=== PATIENT | male | born 1975 | race Caucasian/White ===

== ENCOUNTER 2016-04-28 04:26 | Emergency (ER) | payer OTHER ==
--- NOTE | 2016-04-28 05:08 | ED NURSING NOTES ---
Clinical Report - Nurses [facility] [address] [place] [address] 04/28/2016 4:27 Patient: TYLER HUDDLESTON TRIAGE Triage time 04:35. Acuity: LEVEL 5. Chief Complaint: (Needs meds,sore on left forearm). 04:44. Alert. SEPSIS SCREEN: Sepsis Screen. Negative (no infection suspected/documented). --04:44 Stefan Cordova R.N. 04:34 04/28/16. BP: 139/99. HR: 108. RR: 16. O2 saturation: 100% on room air. Temp: 98.4 F (oral). Pain level now: 10/14. --04:44 Stefan Cordova R.N. Weight: 72.5 kg stated. Height/Length: 68 inches Per Patient. BMI: 24.3. --04:43 Stefan Cordova R.N. Medications Wellbutrin Oral 300mg , 2x a day. --04:38 Stefan Cordova R.N. ZyPREXA Oral 5 mg, at bedtime. --04:38 Stefan Cordova R.N. Remeron Oral (Tablet 30 mg) 2 tablets, at bedtime. --04:39 Stefan Cordova R.N. Neurontin Oral 1200mg , 2x a day as needed. --04:39 Stefan Cordova R.N. ClonazePAM Oral 2 mg, 3x a day as needed. --04:40 Stefan Cordova R.N. Medication/allergy information source: the patient. --04:44 Stefan Cordova R.N. Allergies Keflex.(hives) --04:40 Stefan Cordova R.N. History Arrived by private vehicle. Historian: patient. Accompanied by friend. Primary physician (Melissa). Onset. (2 days ago). ( Patient reports leaving [facility] last tuesday before being discharged so he got no scripts, is asking for medications). Treatment RETAIL MERCHANDISING MANAGER: None. PAST MEDICAL HX: Immunizations: up-to-date. SOCIAL HX: Heavy tobacco smoker- less than 1 pack per day. History of weekly drug use: marijuana. No alcohol use. No infectious disease exposure. ABUSE ASSESSMENT: No report of abuse. FALL RISK ASSESSMENT: Fall risk assessment completed. No fall risk identified. NUTRITIONAL RISK ASSESSMENT: The nutritional risk assessment revealed no deficiencies. FUNCTIONAL ASSESSMENT: Functional assessment: no impairments noted. LEARNING NEEDS ASSESSMENT: The learning needs assessment revealed no barriers. SKIN INTEGRITY ASSESSMENT: Skin integrity risk assessment completed. No skin integrity risk identified. --04:44 Stefan Cordova R.N. PROBLEMS: Anxiety Reaction. Hyperactivity. Schizophrenia. --04:42 Stefan Cordova R.N. ADDITIONAL SURGERIES: no known surgeries. Interventions ID band on patient. To treatment room. --04:44 Stefan Cordova R.N. PHYSICAL ASSESSMENT 04:44. Ambulatory to room. Patient gowned. GENERAL / NEURO / PSYCH: Alert. Oriented X 4. HEENT: No facial asymmetry noted. Mucous membranes are pink. RESPIRATORY: Respirations not labored. SKIN: Skin intact. Skin is warm and dry. Normal skin turgor. --04:45 Stefan Cordova R.N. NURSING PROGRESS NOTES 04:45. Head of bed elevated. Two patient identifiers checked. Call light placed in reach. Bed placed in lowest position. Brakes of bed on. Patient ready for evaluation- chart flagged. --04:45 Stefan Cordova R.N. ( Patient walked without difficulty to the nurses station, to report remembering that he had "back pain, that makes me unable to walk"). --05:08 Luis E Alex, ER Sheet Pile Driver Operator. DISPOSITION / DISCHARGE Departure time: 05:14. Condition at departure: stable. No learning barriers present. Discharge instructions provided and reviewed with the patient. Patient verbalized understanding. Written instructions provided in Korean. The patient was discharged home and accompanied by scale and skip car operator. He left the Emergency Department ambulatory and via private vehicle. Inside Sales Associate driving. FALL RISK ASSESSMENT: Fall risk assessment completed. No fall risk identified. --05:14 Stefan Cordova R.N. Locked/Released at 04/28/2016 5:15 by Stefan Cordova R.N.
--- NOTE | 2016-04-28 05:08 | ED CLINICAL REPORT ---
Clinical Report - Physicians/Mid Levels [facility] [address] [place] [address] 04/28/2016 4:27 Patient: TYLER HUDDLESTON Time Seen: 04:47. Arrived- By private vehicle. Historian- patient. History limited by vague historian. HISTORY OF PRESENT ILLNESS Chief Complaint: PRESCRIPTION REFILL REQUEST. This started about 2 days ago and is still present. It was abrupt in onset. (patient reports that he has been out of his medications for 2 days. He says that he was in [place] previously and was "transferred up" here by the [employer]. He requests refills on his psychiatric meds including Zyprexa, Klonopin, bupropion and "some others I'm not sure of their names."). Recent medical care: The patient was seen recently at another facility in the emergency department. ( He was apparently recently seen at [facility] and says that they discharged him without any meds). REVIEW OF SYSTEMS No chills, fever, sweats, calf pain or chest pain. No cough, difficulty breathing, pedal edema, palpitations or abdominal pain. No constipation, diarrhea, nausea, vomiting or urinary problems. All systems otherwise negative, except as recorded above. PAST HISTORY Problems: Anxiety Reaction. Hyperactivity. Schizophrenia. Additional Surgeries: no known surgeries. Medications: ClonazePAM Oral 2 mg, 3x a day as needed. Neurontin Oral 1200mg , 2x a day as needed. Remeron Oral (Tablet 30 mg) 2 tablets, at bedtime. ZyPREXA Oral 5 mg, at bedtime. Wellbutrin Oral 300mg , 2x a day. Allergies: Keflex.(hives). SOCIAL HISTORY Current every day heavy tobacco smoker (cigarette)- less than 1 pack per day. History of occasional drug use: marijuana. No alcohol use. FAMILY HISTORY Denies family medical history. ADDITIONAL NOTES The nursing notes have been reviewed. PHYSICAL EXAM Vital Signs: 04/28/2016 04:34 BP: 139/99. HR: 108. RR: 16. O2 saturation: 100%. Temp: 98.4 F. Pain level now: 8/10. Have been reviewed. Heart rate: 88 regular per my evaluation. Appearance: Alert. Eyes: Pupils equal, round and reactive to light. ENT: Pharynx normal. Neck: Neck supple. CVS: Normal heart rate and rhythm. Heart sounds normal. Respiratory: No respiratory distress. Breath sounds normal. Abdomen: No visible injury. Soft and nontender. Bowel sounds normal. No organomegaly. No mass. Back: Normal inspection. Skin: Skin warm and dry. Extremities: Extremities exhibit normal ROM. No calf tenderness. No lower extremity edema. PROGRESS AND PROCEDURES Course of Care: Patient is stable. Patient/family counseled. Old medical records ordered. Disposition: Discharged. Condition: stable. CLINICAL IMPRESSION Schizophrenia. INSTRUCTIONS Rest. Warnings: Further evaluation is necessary. GENERAL WARNINGS: Return or contact your physician immediately if your condition worsens or changes unexpectedly, if not improving as expected, or if other problems arise. Understanding of the discharge instructions verbalized by patient. Follow-up with: [facility], , , [address], [facility], [id number] Follow up today. Call for an appointment. (Electronically signed by Julio Cesar Edward MD 04/28/2016 6:26)
--- NOTE | 2016-04-28 05:08 | ED CLINICAL REPORT ---
Clinical Report - Physicians/Mid Levels [facility] [address] [place] [address] 04/28/2016 4:27 Patient: TYLER HUDDLESTON Time Seen: 04:47. Arrived- By private vehicle. Historian- patient. History limited by vague historian. HISTORY OF PRESENT ILLNESS Chief Complaint: PRESCRIPTION REFILL REQUEST. This started about 2 days ago and is still present. It was abrupt in onset. (patient reports that he has been out of his medications for 2 days. He says that he was in [place] previously and was "transferred up" here by the [employer]. He requests refills on his psychiatric meds including Zyprexa, Klonopin, bupropion and "some others I'm not sure of their names."). Recent medical care: The patient was seen recently at another facility in the emergency department. ( He was apparently recently seen at [facility] and says that they discharged him without any meds). REVIEW OF SYSTEMS No chills, fever, sweats, calf pain or chest pain. No cough, difficulty breathing, pedal edema, palpitations or abdominal pain. No constipation, diarrhea, nausea, vomiting or urinary problems. All systems otherwise negative, except as recorded above. PAST HISTORY Problems: Anxiety Reaction. Hyperactivity. Schizophrenia. Additional Surgeries: no known surgeries. Medications: ClonazePAM Oral 2 mg, 3x a day as needed. Neurontin Oral 1200mg , 2x a day as needed. Remeron Oral (Tablet 30 mg) 2 tablets, at bedtime. ZyPREXA Oral 5 mg, at bedtime. Wellbutrin Oral 300mg , 2x a day. Allergies: Keflex.(hives). SOCIAL HISTORY Current every day heavy tobacco smoker (cigarette)- less than 1 pack per day. History of occasional drug use: marijuana. No alcohol use. FAMILY HISTORY Denies family medical history. ADDITIONAL NOTES The nursing notes have been reviewed. PHYSICAL EXAM Vital Signs: 04/28/2016 04:34 BP: 139/99. HR: 108. RR: 16. O2 saturation: 100%. Temp: 98.4 F. Pain level now: 8/10. Have been reviewed. Heart rate: 88 regular per my evaluation. Appearance: Alert. Eyes: Pupils equal, round and reactive to light. ENT: Pharynx normal. Neck: Neck supple. CVS: Normal heart rate and rhythm. Heart sounds normal. Respiratory: No respiratory distress. Breath sounds normal. Abdomen: No visible injury. Soft and nontender. Bowel sounds normal. No organomegaly. No mass. Back: Normal inspection. Skin: Skin warm and dry. Extremities: Extremities exhibit normal ROM. No calf tenderness. No lower extremity edema. PROGRESS AND PROCEDURES Course of Care: Patient is stable. Patient/family counseled. Old medical records ordered. Disposition: Discharged. Condition: stable. CLINICAL IMPRESSION Schizophrenia. INSTRUCTIONS Rest. Warnings: Further evaluation is necessary. GENERAL WARNINGS: Return or contact your physician immediately if your condition worsens or changes unexpectedly, if not improving as expected, or if other problems arise. Understanding of the discharge instructions verbalized by patient. Follow-up with: [facility], , , [address], [facility], [id number] Follow up today. Call for an appointment. (Electronically signed by Julio Cesar Edward MD 04/28/2016 6:26)
--- NOTE | 2016-04-28 05:08 | ED NURSING NOTES ---
Clinical Report - Nurses [facility] [address] [place] [address] 04/28/2016 4:27 Patient: TYLER HUDDLESTON TRIAGE Triage time 04:35. Acuity: LEVEL 5. Chief Complaint: (Needs meds,sore on left forearm). 04:44. Alert. SEPSIS SCREEN: Sepsis Screen. Negative (no infection suspected/documented). --04:44 Stefan Cordova R.N. 04:34 04/28/16. BP: 139/99. HR: 108. RR: 16. O2 saturation: 100% on room air. Temp: 98.4 F (oral). Pain level now: 10/14. --04:44 Stefan Cordova R.N. Weight: 72.5 kg stated. Height/Length: 68 inches Per Patient. BMI: 24.3. --04:43 Stefan Cordova R.N. Medications Wellbutrin Oral 300mg , 2x a day. --04:38 Stefan Cordova R.N. ZyPREXA Oral 5 mg, at bedtime. --04:38 Stefan Cordova R.N. Remeron Oral (Tablet 30 mg) 2 tablets, at bedtime. --04:39 Stefan Cordova R.N. Neurontin Oral 1200mg , 2x a day as needed. --04:39 Stefan Cordova R.N. ClonazePAM Oral 2 mg, 3x a day as needed. --04:40 Stefan Cordova R.N. Medication/allergy information source: the patient. --04:44 Stefan Cordova R.N. Allergies Keflex.(hives) --04:40 Stefan Cordova R.N. History Arrived by private vehicle. Historian: patient. Accompanied by friend. Primary physician (Melissa). Onset. (2 days ago). ( Patient reports leaving [facility] last tuesday before being discharged so he got no scripts, is asking for medications). Treatment MECHANICAL DESIGN TECHNICIAN: None. PAST MEDICAL HX: Immunizations: up-to-date. SOCIAL HX: Heavy tobacco smoker- less than 1 pack per day. History of weekly drug use: marijuana. No alcohol use. No infectious disease exposure. ABUSE ASSESSMENT: No report of abuse. FALL RISK ASSESSMENT: Fall risk assessment completed. No fall risk identified. NUTRITIONAL RISK ASSESSMENT: The nutritional risk assessment revealed no deficiencies. FUNCTIONAL ASSESSMENT: Functional assessment: no impairments noted. LEARNING NEEDS ASSESSMENT: The learning needs assessment revealed no barriers. SKIN INTEGRITY ASSESSMENT: Skin integrity risk assessment completed. No skin integrity risk identified. --04:44 Stefan Cordova R.N. PROBLEMS: Anxiety Reaction. Hyperactivity. Schizophrenia. --04:42 Stefan Cordova R.N. ADDITIONAL SURGERIES: no known surgeries. Interventions ID band on patient. To treatment room. --04:44 Stefan Cordova R.N. PHYSICAL ASSESSMENT 04:44. Ambulatory to room. Patient gowned. GENERAL / NEURO / PSYCH: Alert. Oriented X 4. HEENT: No facial asymmetry noted. Mucous membranes are pink. RESPIRATORY: Respirations not labored. SKIN: Skin intact. Skin is warm and dry. Normal skin turgor. --04:45 Stefan Cordova R.N. NURSING PROGRESS NOTES 04:45. Head of bed elevated. Two patient identifiers checked. Call light placed in reach. Bed placed in lowest position. Brakes of bed on. Patient ready for evaluation- chart flagged. --04:45 Stefan Cordova R.N. ( Patient walked without difficulty to the nurses station, to report remembering that he had "back pain, that makes me unable to walk"). --05:08 Luis E Alex, ER Drier Operator Helper. DISPOSITION / DISCHARGE Departure time: 05:14. Condition at departure: stable. No learning barriers present. Discharge instructions provided and reviewed with the patient. Patient verbalized understanding. Written instructions provided in Kyrgyz. The patient was discharged home and accompanied by precipitation equipment tender. He left the Emergency Department ambulatory and via private vehicle. Flatwork Folder driving. FALL RISK ASSESSMENT: Fall risk assessment completed. No fall risk identified. --05:14 Stefan Cordova R.N. Locked/Released at 04/28/2016 5:15 by Stefan Cordova R.N.
--- NOTE | 2016-04-28 06:26 | ED MED RECONCILIATION SUMMARY ---
Patient: TYLER HUDDLESTON Medication Reconciliation Report [facility] VisitID: [id number] [address] [place] [address] 41y, M Registration Date/Time: 04/28/2016 Weight: 72.5 kg Height/Length: 68 in. BMI: 24.3 ALLERGIES: Keflex The patient's Home Medications are listed below: THE FOLLOWING MEDICATIONS NEED TO BE RECONCILED: ClonazePAM Oral 2 mg, 3x a day Neurontin Oral 1200mg , 2x a day Remeron Oral (30 mg) 2 tablets, at bedtime Wellbutrin Oral 300mg , 2x a day ZyPREXA Oral 5 mg, at bedtime The source(s) of the original Home Medication information: patient The following Medications were given to the patient in the Emergency Department: None. The following Medications were prescribed to the patient: None.
--- NOTE | 2016-04-28 06:26 | ED MED RECONCILIATION SUMMARY ---
Patient: TYLER HUDDLESTON Medication Reconciliation Report [facility] VisitID: [id number] [address] [place] [address] 41y, M Registration Date/Time: 04/28/2016 Weight: 72.5 kg Height/Length: 68 in. BMI: 24.3 ALLERGIES: Keflex The patient's Home Medications are listed below: THE FOLLOWING MEDICATIONS NEED TO BE RECONCILED: ClonazePAM Oral 2 mg, 3x a day Neurontin Oral 1200mg , 2x a day Remeron Oral (30 mg) 2 tablets, at bedtime Wellbutrin Oral 300mg , 2x a day ZyPREXA Oral 5 mg, at bedtime The source(s) of the original Home Medication information: patient The following Medications were given to the patient in the Emergency Department: None. The following Medications were prescribed to the patient: None.
--- NOTE | 2016-04-28 06:26 | ED DISCHARGE INSTRUCTIONS ---
Patient: TYLER HUDDLESTON General Instructions [facility] VisitID: [id number] [address] [place] [address] 41y, M Registration Date/Time: 04/28/2016 Schizophrenia. INSTRUCTIONS Rest. Warnings: Further evaluation is necessary. GENERAL WARNINGS: Return or contact your physician immediately if your condition worsens or changes unexpectedly, if not improving as expected, or if other problems arise. Understanding of the discharge instructions verbalized by patient. Follow-up with: [facility], , , [address], , [place], [id number] Follow up today. Call for an appointment. ADDITIONAL INFORMATION Schizophrenia [General Type] Schizophrenia is a chronic, severe and disabling brain disorder. The cause of schizophrenia is not yet known. It is believed to be a result of genetic and biological factors (brain chemistry and structure). Schizophrenia does run in families and occurs in about 1% of the adult population. Symptoms include: Hallucinations (seeing or hearing things that are not there) Delusions (false beliefs) Disorganized thinking and speech Social withdrawal Severe anxiety Feeling unreal Medicines and therapy can help with many of the symptoms and allow for better daily function and quality of life. These medicines take 2-4 weeks to begin working and 6-8 weeks to take full effect. It is common to feel that you are not ill and that you don't need treatment. It is important to accept the support of friends and family in continuing to take your medicine. Home Care: Be sure to take your medicine as directed even if you think you dont need it. Seek support from friends or family by talking about your feelings and thoughts. Follow Up with your doctor or therapist as advised by our staff. For more information, contact The [employer] [place] [facility] [employer] 920-996-4206 www.monika.org Get Prompt Medical Attention if any of the following occur: Feeling like your symptoms are getting worse Feeling out of control or that you are being controlled by others Feeling like you want to harm yourself or another Unable to care for yourself Worsening hallucinations (hearing voices) Worsening depression or anxiety You have been given the following additional information: Schizophrenia, General Rest. (Electronically signed by Julio Cesar Edward MD 04/28/2016 6:26)
--- NOTE | 2016-04-28 06:26 | ED MAR SUMMARY ---
..... Medication Administration Record [facility] [address] [place] [id number] Patient: TYLER HUDDLESTON Visit ID: [id number] 41y, M Weight: 72.5 kg Height/Length: 68 in BMI: 24.3 ALLERGIES: Keflex
--- NOTE | 2016-04-28 06:26 | ED DISCHARGE INSTRUCTIONS ---
Patient: TYLER HUDDLESTON General Instructions [facility] VisitID: [id number] [address] [place] [address] 41y, M Registration Date/Time: 04/28/2016 Schizophrenia. INSTRUCTIONS Rest. Warnings: Further evaluation is necessary. GENERAL WARNINGS: Return or contact your physician immediately if your condition worsens or changes unexpectedly, if not improving as expected, or if other problems arise. Understanding of the discharge instructions verbalized by patient. Follow-up with: [facility], , , [address], , [place], [id number] Follow up today. Call for an appointment. ADDITIONAL INFORMATION Schizophrenia [General Type] Schizophrenia is a chronic, severe and disabling brain disorder. The cause of schizophrenia is not yet known. It is believed to be a result of genetic and biological factors (brain chemistry and structure). Schizophrenia does run in families and occurs in about 1% of the adult population. Symptoms include: Hallucinations (seeing or hearing things that are not there) Delusions (false beliefs) Disorganized thinking and speech Social withdrawal Severe anxiety Feeling unreal Medicines and therapy can help with many of the symptoms and allow for better daily function and quality of life. These medicines take 2-4 weeks to begin working and 6-8 weeks to take full effect. It is common to feel that you are not ill and that you don't need treatment. It is important to accept the support of friends and family in continuing to take your medicine. Home Care: Be sure to take your medicine as directed even if you think you dont need it. Seek support from friends or family by talking about your feelings and thoughts. Follow Up with your doctor or therapist as advised by our staff. For more information, contact The National [place] [facility] [employer] [phone] www.monika.org Get Prompt Medical Attention if any of the following occur: Feeling like your symptoms are getting worse Feeling out of control or that you are being controlled by others Feeling like you want to harm yourself or another Unable to care for yourself Worsening hallucinations (hearing voices) Worsening depression or anxiety You have been given the following additional information: Schizophrenia, General Rest. (Electronically signed by Julio Cesar Edward MD 04/28/2016 6:26)
--- NOTE | 2016-04-28 06:26 | ED MAR SUMMARY ---
..... Medication Administration Record [facility] [address] [place], [place] [id number] Patient: TYLER HUDDLESTON Visit ID: [id number] 41y, M Weight: 72.5 kg Height/Length: 68 in BMI: 24.3 ALLERGIES: Keflex
== END 2016-04-28 05:14 | disposition home or self-care (01) ==
LOC: ED SRH 04:26
DX: F20.9 Schizophrenia, unspecified (principal); F17.210 Nicotine dependence, cigarettes, uncomplicated; Z79.899 Other long term (current) drug therapy; Z88.8 Allergy status to other drugs, medicaments and biological substances